=== PATIENT | female | born 1990 | race African-American/Black ===

== ENCOUNTER 2020-01-28 23:31 | Emergency (ER) | payer SELFPAY ==
[~2020-01-28] VITALS: Ht 172.7 cm; Wt 64.0 kg
[2020-01-29] MEDS ORDERED: IBUPROFEN 600MG TABLET PO ONE (01:00)
[2020-01-29] MEDS ORDERED: BACITRACIN 15GM TUBE TOP ONE (01:00)
[2020-01-29 04:06] VITALS: BP 120/60
== END 2020-01-29 04:08 | disposition home or self-care (01) ==
LOC: ER 23:31
DX: S80.02XA Contusion of left knee, initial encounter (principal); S80.211A Abrasion, right knee, initial encounter; M25.532 Pain in left wrist; V49.49XA Driver injured in collision with other motor vehicles in traffic accident, initial encounter; Y93.89 Activity, other specified; Y92.488 Other paved roadways as the place of occurrence of the external cause
CPT/HCPCS: 99283